=== PATIENT | female | born 1945 ===

== ENCOUNTER 2017-02-20 09:57 | Emergency (ER) | payer BC ==
[2017-02-20 12:07] VITALS: BP 126/65
--- NOTE | 2017-02-20 12:34 | UC ---
Respiratory Complaint HPI - HPI Summary HPI Summary: 71 yo female with cough/fever/wheezing x 3 days no mylagias or artralgias no cp or sob hx asthma - History of Current Complaint Chief Complaint: UCRespiratory Stated Complaint: FEVER, CONGESTED Time Seen by Provider: 02/20/17 12:02 Hx Obtained From: Patient Onset/Duration: Gradual Onset, Lasting Days - 3 Timing: Constant Severity Initially: Moderate Severity Currently: Mild Pain Intensity: 2 Character: Cough: Nonproductive Aggravating Factors: Nothing Alleviating Factors: Nothing Associated Signs And Symptoms: Positive: Fever, Chills, Wheezing. Negative: Dyspnea, Pleuritic Chest Pain, Hemoptysis, Dizziness, Calf Pain, Calf Swelling, Nasal Congestion, Hoarseness, Sinus Discomfort - Allergies/Home Medications Allergies/Adverse Reactions: Allergies Allergy/AdvReac Type Severity Reaction Status Date / Time Penicillin V Allergy Intermediate Itching Verified 02/20/17 12:07 [From Penicil VK] Home Medications: Home Medications Aspirin [Aspirin 81 MG TAB] 02/20/17 [History] Ibuprofen TAB* [Advil TAB*] 02/20/17 [History] Pseudoephedrine-Guaifenesin [Mucinex D 60-600 mg] 02/20/17 [History] PMH/Surg Hx/FS Hx/Imm Hx Previously Healthy: Yes Respiratory History: Asthma, Bronchitis, Pneumonia - Surgical History Surgical History: Yes Surgery Procedure, Year, and Place: hysterectomy - Family History Known Family History: Positive: Hypertension - Social History Alcohol Use: Occasionally Substance Use Type: None Smoking Status (MU): Never Smoked Tobacco Review of Systems Constitutional: Negative Skin: Negative Eyes: Negative ENT: Negative Respiratory: Cough, Other - wheezing Cardiovascular: Negative Gastrointestinal: Negative Genitourinary: Negative Motor: Negative Neurovascular: Negative Musculoskeletal: Negative Neurological: Negative Psychological: Negative Is Patient Immunocompromised?: No All Other Systems Reviewed And Are Negative: Yes Physical Exam Triage Information Reviewed: Yes Appearance: Well-Appearing, No Pain Distress, Well-Nourished Vital Signs: Initial Vital Signs Temp 98.8 F 02/20/17 12:01 Pulse 70 02/20/17 12:01 Resp 18 02/20/17 12:01 BP 126/65 02/20/17 12:01 Pulse Ox 97 02/20/17 12:01 Eyes: Positive: Conjunctiva Clear ENT: Positive: Hearing grossly normal, Uvula midline. Negative: Nasal congestion, Nasal drainage, Muffled voice, Hoarse voice Respiratory: Positive: No respiratory distress, No accessory muscle use, Wheezing Cardiovascular: Positive: RRR, No Murmur Abdominal Exam: Normal Musculoskeletal: Positive: ROM Intact, No Edema Neurological: Positive: Alert Psychological Exam: Normal Skin Exam: Normal UC Diagnostic Evaluation - Laboratory O2 Sat by Pulse Oximetry: 97 - normal/noty hypoxic - Radiology Xray Interpretation: No Acute Changes Radiology Interpretation Completed By: Radiologist Respiratory Course/Dx - Differential Dx/Diagnosis Provider Diagnoses: acute bronchitis with bronchospasm Discharge - Discharge Plan Condition: Stable Disposition: HOME Prescriptions: Azithromycin TAB* [Zithromax TAB*] 250 mg PO DAILY #6 tab Prednisone [Deltasone] 20 mg PO DAILY #5 tab Patient Education Materials: Acute Bronchitis (ED) Referrals: No Primary Care Phys,NOPCP [Primary Care Provider] - Additional Instructions: return for worsening symptoms see your MD when you get home
--- NOTE | 2017-02-20 12:49 | RAD ---
INDICATION: Wheezing and fever. COMPARISON: There are no prior studies available for comparison. TECHNIQUE: Dual-energy PA and lateral views of the chest were obtained. FINDINGS: The heart is within normal limits in size. Mediastinal and hilar contours appear within normal limits. The lungs are clear. No pleural effusion is present. There is a [id number] dorsal lumbar scoliosis convex toward the right in the dorsal region and toward the left in the lumbar region. IMPRESSION: NO EVIDENCE FOR ACTIVE CARDIOPULMONARY DISEASE.
[2017-02-20] MEDS ORDERED: Albuterol HFA INHALER* 8 gm MDI INH ONE (12:59)
== END 2017-02-20 13:17 | disposition home or self-care (01) ==
LOC: EDBD → UCEAST 09:57
DX: J20.9 Acute bronchitis, unspecified (principal); Z72.89 Other problems related to lifestyle
CPT/HCPCS: 71020; 99202; A9270-GY; G0463